=== PATIENT | male | born 1960 | race Two or more races ===

== ENCOUNTER 2023-02-05 06:15 | Emergency (ER) | payer MEDICAID, SELFPAY ==
--- NOTE | 2023-02-05 | ECG_ITS ---
Test Reason : syncopy Blood Pressure : / mmHG Vent. Rate : 102 BPM Atrial Rate : 102 BPM P-R Int : 138 ms QRS Dur : 090 ms QT Int : 388 ms P-R-T Axes : 068 054 056 degrees QTc Int : 505 ms Sinus tachycardia with Premature atrial complexes Nonspecific ST abnormality Abnormal ECG No previous ECGs available Referred By: Generic ED Physician Electronically Signed By:Luis Bentley
--- NOTE | ~2023-02-05 | XR_ITS ---
EXAMINATION: XR CHEST CLINICAL INFORMATION: Cough COMPARISON: None available. TECHNIQUE: 2 views of the chest were obtained. FINDINGS: Slight bronchial thickening which can be seen in setting of infectious/inflammatory etiology. Elevation the right hemidiaphragm, nonspecific. No pneumothorax. Trachea is midline. Cardiac mediastinal silhouette is not enlarged. Atherosclerotic calcifications of the aortic arch. No large pleural effusion. Degenerative changes of the thoracolumbar spine. Soft tissues are unremarkable. XR/XR chest 2V IMPRESSION: 1. Slight bronchial thickening which can be seen in setting of infectious/inflammatory etiology. 2. Elevation of the right hemidiaphragm, nonspecific.
[2023-02-05 06:20] VITALS: BP 142/90; PULSE 105; O2SAT 96
[2023-02-05 06:22] VITALS: BP 164/87; PULSE 99; RESP 20; TEMP 36.8; O2SAT 96; BMI 24.8
[2023-02-05 06:32] VITALS: BP 145/89; O2SAT 100
[2023-02-05 06:48] LABS: MANUAL DIFF FLAG NO
[2023-02-05 06:49] LABS: Basophils Percent Auto 0.2 % (0-2); Eosinophils Percent Auto 0.2 % (0-4); Hematocrit 45.6 % (42.0-52.0); Hemoglobin 15.3 g/dl (14.0-18.0); Imm Gran Abs Auto 0.06 X10*3/uL (0.00-0.03); Imm Gran Pct Auto 0.5 % (0.0-0.4); Lymphocytes Absolute Auto 1.5 X10*3/uL (1.2-4.9); Lymphocytes Percent Auto 11.6 % (20-40); Mean Corpuscular HGB Conc 33.6 g/dl (31.0-36.0); Mean Corpuscular Volume 92.3 fL (80.0-98.0); Mean Platelet Volume 10.3 fL (9.4-12.4); Monocytes Absolute Auto 1.1 X10*3/uL (0.1-1.2); Monocytes Percent Auto 8.7 % (2-11); Neutrophils Absolute Auto 10.1 x10*3/uL (2.0-8.3); Neutrophils Percent Auto 78.8 % (45-73); Platelet Count 176 X10*3/uL (160-400); Red Blood Count 4.94 X10*6/uL (4.60-5.80); White Blood Count 12.8 X10*3/uL (4.8-10.8)
[2023-02-05 07:09] VITALS: BP 150/76; PULSE 88; RESP 20; TEMP 37.1; O2SAT 94
[2023-02-05 07:09] LABS: Anion Gap 19 (12-20); Blood Urea Nitrogen 14 mg/dL (9-16); Calcium 9.1 mg/dL (8.4-10.2); Carbon Dioxide 20 mmol/L (22-29); Chloride 102 mmol/L (96-108); Creatinine Clr Calc Pharmacy 70.6; Estimated Glomerular Filt Rate > 60; Glucose Random 138 mg/dL (60-115); Potassium 2.9 mmol/L (3.3-5.1); Sodium 138 mmol/L (135-145)
[2023-02-05 07:27] LABS: Influenza A PCR POSITIVE (Negative); Influenza B PCR NEGATIVE (Negative); Resp Syncy Virus RNA Qual PCR NEGATIVE (Negative); SARS COV2 PCR INHOUSE NEGATIVE (Negative)
--- NOTE | 2023-02-05 07:39 | ED.GENADULT ---
[facility] - General Adult General Chief complaint: Syncope Stated complaint: syncope Time Seen by Provider: 02/05/23 07:04 Source: patient Mode of arrival: EMS History of Present Illness HPI narrative: 62-year-old male who has no significant past medical history other than occasional alcohol use, last use was 2 days ago but patient has been having 3 days generalized weakness, fatigue, not feeling well . Patient states that this morning he was feeling very weakened, he denies falling or even nearly falling. Related Data Previous Rx's Medication Instructions Recorded amoxicillin 875 mg-potassium 1 tab PO BID 5 days #10 tabs 02/05/23 clavulanate 125 mg tablet Allergies Allergy/AdvReac Type Severity Reaction Status Date / Time morphine Allergy Rash Verified 02/05/23 06:21 Review of Systems Review of Systems: Pertinent positives and negatives as stated in [facility] Past Medical History Source: nursing notes reviewed Social History Social History Advance Directives: No Advance Directives Information Provided: No Physical Exam ED Vital Signs: Vital Signs - 24 hr 02/05/23 06:22 02/05/23 06:32 02/05/23 06:32 Temperature 98.3 F Pulse Rate 99 Respiratory Rate 20 Blood Pressure 164/87 H 145/89 H Pulse Oximetry 96 100 Oxygen Delivery Method Room Air Room Air 02/05/23 07:09 02/05/23 09:36 Temperature 98.7 F 98.4 F Pulse Rate 88 101 H Respiratory Rate 20 24 H Blood Pressure 150/76 H Pulse Oximetry 94 96 Oxygen Delivery Method Room Air Room Air BMI result Body Mass Index 24.8 VITAL SIGNS: Reviewed. GENERAL: Well developed, well nourished, in no acute distress. HEAD: Normocephalic/atraumatic EYES: PERRLA, EOMI EARS: Ext canals without abnormality, TMs non-bulging and non-erythematous NOSE: Nares patent bilateral OROPHARYNX: no oral lesions noted, posterior pharynx clear and non-erythematous without noted tonsillar enlargement/erythema/exudates NECK: Supple, no adenopathy LUNGS: Normal breath sounds. No adventitious sounds or accessory muscle use. SpO2<94> CARDIOVASCULAR: Regular rate and rhythm without noted murmurs ABDOMEN: Soft, non-tender, non-distended with bowel sounds. MUSCULOSKELETAL: No tenderness, deformities, or effusions noted on gross inspection. EXTREMITIES: No cyanosis, clubbing or edema. SKIN: Inspection of the skin reveals no rashes NEUROLOGIC: Alert and oriented x 4. Strength and sensation to light touch were grossly intact x 4. Medications Administered Discontinued Medications Generic Name Dose Route Start Last Admin Trade Name Dimitris PRN Reason Stop Dose Admin Acetaminophen 975 mg 02/05/23 08:03 02/05/23 08:21 Acetaminophen 325 Mg Tablet PO 02/05/23 08:04 975 mg ONCE ONE Administration Ibuprofen 400 mg 02/05/23 08:03 02/05/23 08:21 Ibuprofen 400 Mg Tablet PO 02/05/23 08:04 400 mg ONCE ONE Administration Potassium Chloride 60 meq 02/05/23 08:03 02/05/23 08:21 Potassium Chloride Er 20 Meq Tab.Er.Prt PO 02/05/23 08:04 60 meq ONCE ONE Administration Medical Decision Making Medical Decision Making [facility] Narrative: 0740: 62-year-old male with history and clinical presentation, DDX: Pneumonia, viral illness: COVID/influenza/RSV, anemia or electrolyte derangements. Patient denies any fall despite what is reported in the triage note. Patient states he just was not feeling well and sat down. I reviewed all investigations, hematologic indices demonstrate a leukocytosis and left shift but no anemia or thrombocytopenia. Patient is afebrile and is noted to be flu positive with chest x-ray demonstrated bronchial wall thickening. Patient will receive antibiotics, but is out of the window for Tamiflu. Chemistry indices demonstrate a mild hypokalemia which will be repleted with 60 mEq of potassium chloride and also provided with information regarding dietary changes (patient does use alcohol on a semi-regular basis which is likely contributing to these results, but magnesium was within normal limits). No acute findings on EKG other than tachycardia. My interpretation is that patient has a viral syndrome, not feeling well secondary to influenza infection and suspect underlying CAP. Received combination analgesics, potassium chloride as well as initial antibiotics here in the emergency room. Differential Diagnosis Differential Diagnoses: The differential diagnosis associated with the presentation includes Please see the discussion above Admission/Observation Consideration of admission/observation: Escalation of care including admission/observation considered Please see the discussion above Lab Data [facility] Lab Attestation statement: I reviewed the patient's lab results. Please see the discussion above 02/05/23 06:41 02/05/23 06:41 Labs: Lab Results 02/05/23 02/05/23 Range/Units 06:41 06:45 WBC 12.8 H (4.8-10.8) X10*3/uL RBC 4.94 (4.60-5.80) X10*6/uL Hgb 15.3 (14.0-18.0) g/dl Hct 45.6 (42.0-52.0) % MCV 92.3 (80.0-98.0) fL MCH 31.0 (27.0-33.0) pg MCHC 33.6 (31.0-36.0) g/dl RDW 13.0 (11.0-16.0) % Plt Count 176 (160-400) X10*3/uL MPV 10.3 (9.4-12.4) fL Immature Gran % (Auto) 0.5 H (0.0-0.4) % Neut % (Auto) 78.8 H (45-73) % Lymph % (Auto) 11.6 L (20-40) % Sierra % (Auto) 8.7 (2-11) % Eos % (Auto) 0.2 (0-4) % Baso % (Auto) 0.2 (0-2) % Lymph # (Auto) 1.5 (1.2-4.9) X10*3/uL Sierra # (Auto) 1.1 (0.1-1.2) X10*3/uL Eos # (Auto) 0.0 (0.0-0.4) X10*3/uL Baso # (Auto) 0.0 (0.0-0.2) X10*3/uL Abs Immat Gran (auto) 0.06 H (0.00-0.03) X10*3/uL Absolute Neuts (auto) 10.1 H (2.0-8.3) x10*3/uL Absolute Nucleated RBC 0.000 (0.0-0.012) X10*3/uL Nucleated RBC % (auto) 0.0 (0.0-0.2) /100WBC Sodium 138 (135-145) mmol/L Potassium 2.9 L (3.3-5.1) mmol/L Chloride 102 (96-108) mmol/L Carbon Dioxide 20 L (22-29) mmol/L Anion Gap 19 (12-20) BUN 14 (9-16) mg/dL Creatinine 1.12 (0.5-1.4) mg/dL Estim Creat Clear Calc 70.6 Estimated GFR > 60 Random Glucose 138 H (60-115) mg/dL Calcium 9.1 (8.4-10.2) mg/dL Magnesium 1.9 (1.6-2.6) mg/dL Influenza Type A (PCR) POSITIVE A (Negative) Influenza Type B (PCR) NEGATIVE (Negative) RSV RNA Qual (PCR) NEGATIVE (Negative) SARS-CoV-2 RNA (RT-PCR) NEGATIVE (Negative) Independent Interpretation I performed an independent interpretation of an: EKG Interpretation: Sinus tachycardia, HR-102, no STEMI, MO/QRS are within normal limits but QTC is noted to be mildly prolonged. Radiology Impression Discussion of test interpretation with radiology: I have reviewed the radiologist's reading. Radiologist Impression: Please see the discussion above External Record Review External record reviewed: Outpatient record, Prior outpatient labs and Prior outpatient radiology Critical Care Time Critical Care Time Critical Care Time: Yes Total Critical Care Time: 30 Attestation: I personally attest to this time spent taking care of the patient. Discharge Plan Discharge Clinical Impression: Viral syndrome, Influenza A, Pneumonia Patient Disposition: Home, Self-Care Instructions: Influenza (ED), Viral Syndrome (ED), Pneumonia (ED), Potassium Content of Foods List (ED) Additional Instructions: 1. Recommend [id number] Tylenol/ibuprofen as needed for body aches, headaches, temperatures greater than 100.4. 2. Please continue to drink plenty of fluids, water not alcohol, resume any home medications as prescribed. 3. Follow-up with your primary care doctor in the next 1-2 days. Return to the ER for any worsening symptoms. Prescriptions: New amoxicillin-pot clavulanate 875-125 mg tablet 1 tab PO BID 5 Days Qty: 10 0RF
[2023-02-05 07:59] LABS: Magnesium 1.9 mg/dL (1.6-2.6)
[2023-02-05] MEDS: Ibuprofen 400 MG TABLET PO (08:21)
[2023-02-05] MEDS: Acetaminophen 325 MG TABLET 975 MG PO (08:21)
[2023-02-05] MEDS: Potassium Chloride ER 20 MEQ TAB.ER.PRT 60 MEQ PO (08:21)
[2023-02-05 09:36] VITALS: PULSE 101; RESP 24; TEMP 36.9; O2SAT 96
[2023-02-05 10:08] VITALS: BP 150/80; PULSE 100; RESP 19; O2SAT 96
== END 2023-02-05 10:14 | disposition home or self-care (01) ==
PROVIDERS: Emergency Provider Student in an Organized Health Care Education/Training Program
DX: J10.00 Influenza due to other identified influenza virus with unspecified type of pneumonia (principal); B34.9 Viral infection, unspecified; Z20.822 Contact with and (suspected) exposure to COVID-19; Z20.828 Contact with and (suspected) exposure to other viral communicable diseases
CPT/HCPCS: 0241U; 36415; 71046; 80048; 83735; 85025; 93005; 99283; 99285

== ENCOUNTER → 2023-02-05 06:35 | Outpatient (BNV) | payer MEDICAID, SELFPAY | PROVIDERS: Emergency Provider Student in an Organized Health Care Education/Training Program; Visit Provider Internal Medicine Cardiovascular Disease | DX: I49.1 Atrial premature depolarization (principal); R94.31 Abnormal electrocardiogram [ECG] [EKG] | CPT/HCPCS: 93010 ==

== ENCOUNTER 2023-04-23 13:04 | Outpatient (AMB) | payer MEDICAID, SELFPAY ==
--- NOTE | 2023-04-23 13:07 | A.OFFVIS_ITS ---
Intake Vital Signs 04/23/23 13:15 Height 5 ft 10 in Weight 175 lb BMI 25.1 BP 140/82 H Blood Pressure Location Lt brachial Position Sitting Respiration 16 Pulse 80 Pulse Source Pulse Oximeter Pulse Oximetry (%) 97 Oxygen Delivery Method Room Air Intake Visit Reasons: Low Back Pain/confirm Intake Note: Patient comes in for initial visit was referred by primary care. Reports pain 09/02. Allergies morphine Allergy (Verified 04/23/23 13:13) Rash HPI HPI Comments History of Present Illness Details Price is very pleasant 62 years old gentleman who presents in my office with complains on pain in the axial lower lumbar spine with associated numbness in the right lower extremity. He reports that the problem started years ago. He reports that walking aggravates his pain the most. Flexing forward and flexing backwards hurts him however flexing backwards aggravates his pain more than flexing forward. He can not sleep normally because of his pain but he can not do activities of daily living he can not take care of himself he can not function normally. He is on permanent disability. His last full day of work was 15 years ago. He is on disability because of the neck surgery. However he denies knee pain in the cervical spine. He reports that his pain is worse at night and less severe in the afternoon. In terms of tissue damage he reports that his pain is throbbing in nature. He is taking oxycodone clonazepam and trazodone for his condition. He denies any recent images of his lumbar spine. He had the MRI long time ago and he received epidural steroid injections many years ago. He does not remember if epidural steroid injection was helping his pain. He went for physical therapy and with physical therapy he experienced pain so severe that he is refuses to continue to go for physical therapy. He denies chiropractic manipulation. His past medical history is negative. His past surgical history is posterior fusion of the cervical spine, and meniscus tear surgery 20 years ago. He denies smoking cigarettes he denies drinking alcohol he drinks coffee 1 cup a day and he smokes cannabis. He denies other recreational drugs. [facility] Medical History (Updated 04/23/23 @ 13:49 by Jose Manuel Bena MD) Chronic pain syndrome Review of Systems Const Denies chills and Denies fever(s) Eyes Denies blurry vision, Denies exophthalmos and Denies diplopia ENT Reports Normal hearing present, Denies vertigo and Denies dizziness Card Denies chest pain, Denies chest pain at rest, Denies chest pain with activity, Reports diaphoresis, Denies syncope, Denies rapid heart rate, Denies pedal edema and Denies edema Resp Denies chest congestion, Denies cough, Denies hemoptysis, Denies excessive phlegm production, Denies pain on inspiration and Denies pain with cough GI Denies abdominal pain, Denies belching, Denies melena and Denies bloating Denies urinary incontinence Musc Denies as per HPI, Denies back pain and Denies tingling Neuro Reports Normal hearing present, Denies Abnormal speech present, Denies confusion, Denies vertigo, Denies dizziness, Denies syncope, Denies lack of coordination, Denies Sensory deficit (Neuro) and Denies tingling Psych Reports abnormal sleep pattern and Denies confusion Physical Exam Vital Signs: Last Vital Signs Pulse 80 04/23/23 13:15 Resp 16 04/23/23 13:15 BP 140/82 H 04/23/23 13:15 Pulse Ox 97 04/23/23 13:15 Oxygen Delivery Method Room Air 04/23/23 13:15 BMI result Body Mass Index 25.1 Const General: no acute distress; No confusion Orientation/consciousness: patient oriented x3 and No confusion Eyes General: appearance normal, both eyes and all related structures Pupils: Equal, round and reactive pupils present EOM: EOMs intact bilaterally Neck Neck: Yes full ROM Chest Chest palpation & inspection: normal inspection of the chest Resp Effort & Inspection: normal respiratory effort, able to speak in complete sentences, normal respiratory pattern, no audible wheezes and no cough Cardio Jugular venous distension: no JVD GI Inspection: Yes normal to inspection Back/Spine/Pelvis Other: Able to stand with difficulty on bilateral tiptoes. The right lower extremities objectively weaker when he is attempting to stand on the tiptoes. Able to stand on bilateral heels with dorsiflexion of the feet. SLR is positive on the right. There is subjective numbness in the right lower extremity. The numbness is below the level of the lower calf. Flexing forward and flexing backwards both aggravate his pain. Flexing backwards aggravates his pain more than flexing forward. Tenderness on palpation in paraspinal spinal region lumbar spine mostly in projection of L4-5 vertebra. Neuro General: patient oriented x3, gait normal and No confusion Cranial nerves: Yes Equal, round and reactive pupils present and Yes Normal hearing present Speech: No Abnormal speech present Gait exam (Neuro): Normal gait present Motor exam (neuro): 5/5 motor strength present throughout Sensory Exam: No Sensory deficit (Neuro) Extrem General: No pedal edema Psych Speech and movement: Normal speech and movement present Affect: normal affect Attitude: cooperative Thought process: Normal thought process present Thought content: Normal thought content present Insight: Good insight present (Psych) Judgement: Good judgement present (Psych) Assessment & Plan Assessment & Plan (1) Radiculopathy, lumbar region: Code(s): M54.16 - Radiculopathy, lumbar region (2) Intractable low back pain: Code(s): M54.59 - Other low back pain (3) Chronic pain syndrome: Code(s): G89.4 - Chronic pain syndrome Plan Most likely this patient is suffering from right-sided radiculopathy. He had epidural steroid injections in the past long time ago with unknown results. Most likely he had some changes on MRI at that time. I would like to see the MRI of the lumbar spine before I will make any conclusions about the treatment of the patient. I will schedule him for MRI as soon as possible. He will schedule appointment as soon as possible after he will exited the MRI machine. Orders: Orders MR lumbar spine wo con Today M54.16 - Radiculopathy, lumbar region, M54.59 - Other low back pain Coding Level of Care Code New Pt Level 3 (47769) Diagnoses Radiculopathy, lumbar region M54.16 Intractable low back pain M54.59 Chronic pain syndrome G89.4
[2023-04-23 13:15] VITALS: BP 140/82; PULSE 80; RESP 16; O2SAT 97; BMI 25.1
== END 2023-04-23 15:15 | disposition home or self-care (01) ==
PROVIDERS: PCP Internal Medicine; Visit Provider Anesthesiology
DX: M54.16 Radiculopathy, lumbar region (principal); M54.59 Other low back pain; G89.4 Chronic pain syndrome
CPT/HCPCS: 99203

== ENCOUNTER → 2023-04-23 13:04 | Outpatient (BNVA) | payer MEDICAID, SELFPAY | PROVIDERS: PCP Internal Medicine; Visit Provider Anesthesiology | DX: M54.16 Radiculopathy, lumbar region (principal); M54.59 Other low back pain; G89.4 Chronic pain syndrome | CPT/HCPCS: 99202 ==

== ENCOUNTER 2023-07-01 14:14 | Outpatient (REF) | payer MEDICAID, SELFPAY ==
--- NOTE | ~2023-07-01 | MR_ITS ---
EXAMINATION: MR LUMBAR SPINE WITHOUT CONTRAST CLINICAL INFORMATION: Low back pain COMPARISON: None available. TECHNIQUE: MRI of the lumbar spine was obtained using routine sequences without contrast. FINDINGS: Please note that evaluation is limited as axial T2 sequence was was obtained from L3 through S1. There are 5 nonrib-bearing lumbar-type vertebrae. Slight straightening of the normal lumbar lordosis. Mild retrolisthesis at L4-L5. No acute bone marrow abnormality. The vertebral body heights are preserved. Disc desiccation at L4-L5 and L5-S1 without significant disc height loss. Multilevel endplate osteophytosis. The visualized spinal cord is normal in caliber. No abnormal cord signal. The conus medullaris terminates at L1-L2. T12-L1: No significant spinal canal or neural foraminal narrowing. L1-L2: No significant spinal canal or neural foraminal narrowing. L3-L4: No significant spinal canal stenosis. Minimal left greater than right neural foraminal narrowing with the disc abutting the exiting L3 nerve roots bilaterally. L4-L5: Central disc extrusion migrating caudally along L5. There is superimposed annular fissure. Bilateral facet arthrosis. Moderate spinal canal stenosis. Mild to moderate bilateral neural foraminal narrowing with the disc abutting the exiting L4 nerve roots. L5-S1: Diffuse disc bulge and bilateral facet arthrosis. Prominent epidural fat. There is resultant near complete effacement of the thecal sac. Mild to moderate left greater than right neural foraminal narrowing with the disc abutting the exiting L5 nerve roots bilaterally. The paravertebral soft tissues are unremarkable. MR/MR lumbar spine wo con IMPRESSION: Within the limitations of this study, -At L4-L5, there is a central disc extrusion with superimposed annular fissure causing moderate spinal canal stenosis and mild to moderate bilateral neural foraminal narrowing. -At L5-S1: Disc bulge and epidural lipomatosis resulting in near complete effacement of the thecal sac. There is mild to moderate moderate bilateral neural foraminal narrowing with the disc abutting the exiting L5 nerve roots.
== END 2023-07-01 14:15 | disposition home or self-care (01) ==
LOC: HO.MRI 14:14
PROVIDERS: PCP Internal Medicine; Visit Provider Anesthesiology
DX: M54.59 Other low back pain (principal); M54.16 Radiculopathy, lumbar region
CPT/HCPCS: 72148

== ENCOUNTER 2023-11-19 14:00 | Outpatient (AMB) | payer MEDICAID, SELFPAY ==
--- NOTE | 2023-11-19 14:07 | A.OFFVIS_ITS ---
Vital Signs 11/19/23 14:11 Height 5 ft 10 in Weight 174 lb 2 oz BMI 25.0 BP 140/84 H Blood Pressure Location Lt brachial Position Sitting Respiration 14 Pulse 108 H Pulse Source Pulse Oximeter Pulse Oximetry (%) 97 Oxygen Delivery Method Room Air Intake Visit Reasons: FOLLOW UP AFTER MRI Intake Note: Patient comes in to discuss MRI results. Reports pain 810. Allergies morphine Allergy (Verified 11/19/23 14:11) Rash HPI Comments Details: Price is back in my office after the MRI. 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 It also demonstrated significant arthritis in lower lumbar spine. We agreed today that I will send him for the consultation with our neurosurgeon Dr. Funk, we also agreed today that I will try to help his pain in the lower back mostly axial pain by performing medial branch block diagnostic L3-L4 does ramus L5 bilateral. I will see this patient an appointment after the diagnostic medial branch block to assess the the patient's condition. The numbness in bilateral lower extremities we will certainly not be helped by medial branch block so the hope is that maybe neurosurgery can offer him some minimally invasive procedure to to help this condition. Prior: with complains on pain in the axial lower lumbar spine with associated numbness in the right lower extremity. He reports that the problem started years ago. He reports that walking aggravates his pain the most. Flexing forward and flexing backwards hurts him however flexing backwards aggravates his pain more than flexing forward. He can not sleep normally because of his pain but he can not do activities of daily living he can not take care of himself he can not function normally. He is on permanent disability. His last full day of work was 15 years ago. He is on disability because of the neck surgery. However he denies knee pain in the cervical spine. He reports that his pain is worse at night and less severe in the afternoon. In terms of tissue damage he reports that his pain is throbbing in nature. He is taking oxycodone clonazepam and trazodone for his condition. He denies any recent images of his lumbar spine. He had the MRI long time ago and he received epidural steroid injections many years ago. He does not remember if epidural steroid injection was helping his pain. He went for physical therapy and with physical therapy he experienced pain so severe that he is refuses to continue to go for physical therapy. He denies chiropractic manipulation. His past medical history is negative. His past surgical history is posterior fusion of the cervical spine, and meniscus tear surgery 20 years ago. He denies smoking cigarettes he denies drinking alcohol he drinks coffee 1 cup a day and he smokes cannabis. He denies other recreational drugs. [facility] Medical History (Updated 11/20/23 @ 08:36 by Jose Manuel Bean MD) Chronic pain syndrome Review of Systems Const All systems reviewed & are unremarkable except as noted in HPI and below ENT Reports Normal hearing present Neuro Reports Normal hearing present, Denies Abnormal speech present, Denies confusion and Denies Sensory deficit (Neuro) Psych Denies confusion Physical Exam Vital Signs: Last Vital Signs Pulse 108 H 11/19/23 14:11 Resp 14 11/19/23 14:11 BP 140/84 H 11/19/23 14:11 Pulse Ox 97 11/19/23 14:11 Oxygen Delivery Method Room Air 11/19/23 14:11 BMI result Body Mass Index 25.0 Const General: no acute distress; No confusion Orientation/consciousness: patient oriented x3 and No confusion Eyes General: appearance normal, both eyes and all related structures Pupils: Equal, round and reactive pupils present EOM: EOMs intact bilaterally Neck Neck: Yes full ROM Chest Chest palpation & inspection: normal inspection of the chest Resp Effort & Inspection: normal respiratory effort, able to speak in complete sentences, normal respiratory pattern, no audible wheezes and no cough Cardio Jugular venous distension: no JVD GI Inspection: Yes normal to inspection Back/Spine/Pelvis Other: Able to stand with difficulty on bilateral tiptoes. The right lower extremities objectively weaker when he is attempting to stand on the tiptoes. Able to stand on bilateral heels with dorsiflexion of the feet. SLR is positive on the right. There is subjective numbness in the right lower extremity. The numbness is below the level of the lower calf. Flexing forward and flexing backwards both aggravate his pain. Flexing backwards aggravates his pain more than flexing forward. Tenderness on palpation in paraspinal spinal region lumbar spine mostly in projection of L4-5 vertebra. Neuro General: patient oriented x3, gait normal and No confusion Cranial nerves: Yes Equal, round and reactive pupils present and Yes Normal hearing present Speech: No Abnormal speech present Gait exam (Neuro): Normal gait present Motor exam (neuro): 5/5 motor strength present throughout Sensory Exam: No Sensory deficit (Neuro) Extrem General: No pedal edema Psych Speech and movement: Normal speech and movement present Affect: normal affect Attitude: cooperative Thought process: Normal thought process present Thought content: Normal thought content present Insight: Good insight present (Psych) Judgement: Good judgement present (Psych) Results Reviewed Results Reviewed: MR LUMBAR SPINE WITHOUT CONTRAST CLINICAL INFORMATION: Low back pain COMPARISON: None available. TECHNIQUE: MRI of the lumbar spine was obtained using routine sequences without contrast. FINDINGS: Please note that evaluation is limited as axial T2 sequence was was obtained from L3 through S1. There are 5 nonrib-bearing lumbar-type vertebrae. Slight straightening of the normal lumbar lordosis. Mild retrolisthesis at L4-L5. No acute bone marrow abnormality. The vertebral body heights are preserved. Disc desiccation at L4-L5 and L5-S1 without significant disc height loss. Multilevel endplate osteophytosis. The visualized spinal cord is normal in caliber. No abnormal cord signal. The conus medullaris terminates at L1-L2. T12-L1: No significant spinal canal or neural foraminal narrowing. L1-L2: No significant spinal canal or neural foraminal narrowing. L3-L4: No significant spinal canal stenosis. Minimal left greater than right neural foraminal narrowing with the disc abutting the exiting L3 nerve roots bilaterally. L4-L5: Central disc extrusion migrating caudally along L5. There is superimposed annular fissure. Bilateral facet arthrosis. Moderate spinal canal stenosis. Mild to moderate bilateral neural foraminal narrowing with the disc abutting the exiting L4 nerve roots. L5-S1: Diffuse disc bulge and bilateral facet arthrosis. Prominent epidural fat. There is resultant near complete effacement of the thecal sac. Mild to moderate left greater than right neural foraminal narrowing with the disc abutting the exiting L5 nerve roots bilaterally. The paravertebral soft tissues are unremarkable. MR/MR lumbar spine wo con IMPRESSION: Within the limitations of this study, -At L4-L5, there is a central disc extrusion with superimposed annular fissure causing moderate spinal canal stenosis and mild to moderate bilateral neural foraminal narrowing. -At L5-S1: Disc bulge and epidural lipomatosis resulting in near complete effacement of the thecal sac. There is mild to moderate moderate bilateral neural foraminal narrowing with the disc abutting the exiting L5 nerve roots. Assessment & Plan Assessment & Plan (1) Radiculopathy, lumbar region: Code(s): M54.16 - Radiculopathy, lumbar region Category: Medical (2) Intractable low back pain: Code(s): M54.59 - Other low back pain Category: Medical (3) Chronic pain syndrome: Code(s): G89.4 - Chronic pain syndrome Category: Medical (4) Spondylosis of lumbar region without myelopathy or radiculopathy: Code(s): M47.816 - Spondylosis without myelopathy or radiculopathy, lumbar region Category: Medical Plan Most likely this patient is suffering from right-sided radiculopathy. He had epidural steroid injections in the past long time ago with unknown results. Unlikely the results were encouraging otherwise he would be continuing those injections. He complains mostly on numbness in bilateral lower extremities. The axial back pain with radiation into the right lower extremity is another complaint. I will try to differentiate between the axial back pain secondary to arthritis of the facets versus the nerve root compression by the disc bulging and lipomatosis. I will send him for consult with Dr. Funk. Orders: Referrals Neurosurgery Referral G89.4 - Chronic pain syndrome, M47.816 - Spondylosis without myelopathy or radiculopathy, lumbar region, M54.16 - Radiculopathy, lumbar region, M54.59 - Other low back pain Patient Instructions: I here by testify that I spent 32 minutes in conversation with this patient as well as planning his care and organizing this note. Coding Level of Care Code Est Pt Level 4 (24245) Diagnoses Radiculopathy, lumbar region M54.16 Intractable low back pain M54.59 Chronic pain syndrome G89.4 Spondylosis of lumbar region without myelopathy or radiculopathy M47.816
[2023-11-19 14:11] VITALS: BP 140/84; PULSE 108; RESP 14; O2SAT 97; BMI 25.0
== END 2023-11-19 14:36 | disposition home or self-care (01) ==
PROVIDERS: PCP Internal Medicine; Visit Provider Anesthesiology
DX: M54.16 Radiculopathy, lumbar region (principal); M54.59 Other low back pain; G89.4 Chronic pain syndrome; M47.816 Spondylosis without myelopathy or radiculopathy, lumbar region
CPT/HCPCS: 99214

== ENCOUNTER → 2023-11-19 14:00 | Outpatient (BNVA) | payer MEDICAID, SELFPAY | PROVIDERS: PCP Internal Medicine; Visit Provider Anesthesiology | DX: M47.816 Spondylosis without myelopathy or radiculopathy, lumbar region (principal); M54.16 Radiculopathy, lumbar region; M54.50 Low back pain, unspecified; G89.4 Chronic pain syndrome; Z79.891 Long term (current) use of opiate analgesic; Z79.899 Other long term (current) drug therapy | CPT/HCPCS: 99212 ==

== ENCOUNTER 2023-11-28 10:30 | Outpatient (AMB) | payer MEDICAID, SELFPAY ==
--- NOTE | 2023-11-28 10:34 | HO.SPINEOV ---
Intake Visit Reasons: LBP Intake Note: Mr. Sullivan is here today c/o Low back pain. [employer] In[employer] Required: No Allergies morphine Allergy (Verified 11/28/23 10:38) Rash Assessment & Plan Assessment & Plan (1) Cervical myelopathy: Code(s): G95.9 - Disease of spinal cord, unspecified Category: Medical (2) Intractable low back pain: Code(s): M54.59 - Other low back pain Category: Medical Plan Dear Dr Bean, Thank you for referring Mr Sullivan to our office today. He is a very nice 63-year-old gentleman presents to the office today for evaluation of chronic low back pain. The pain is generally they are in his back all the time, it has been this way for many many years. He had to stop working years ago because of the back pain. He will get intermittent flare-ups 2 to 3 times a month will which will put him in bed for days on end. He smokes marijuana which helps his pain, takes oxycodone Klonopin but does not feel these really do much. He has been through physical therapy which only made things worse. He has not had any injections, chiropractic, acupuncture yet. For the most part he just lives with the symptoms. He does not report any pain radiating down his legs. There is numbness in his anterior tibial region that is present all the time. It initially started on the left but now has progressed to the right. He does have balance issues and some urinary urgency. He comes to us today with an MRI showing central disc herniation at L4-5. PMH: He tells me he is otherwise healthy outside of being a smoker. He had a cervical laminectomy done about 20 years ago or so. He tells me that was done for neck pain. There was hardware put in but he can not remember exactly what levels of the spine were operated on. He does not recall having any issues with spinal cord compression at that time in terms of tingling numbness, gait imbalance etc.. He recovered without incident from that. He has not recently been having any significant neck pain or new numbness in the arms. He has had recent development of numbness in his legs however. History of appendectomy. Denies any heart disease, strokes, liver disease, renal disease, GI problems, cancer, bleeding disorders, blood clots, strokes. Social hx: He smokes about 5 cigarettes a day, occasional alcohol smokes marijuana daily Medications: Oxycodone, Klonopin, trazodone Allergies: Morphine gives him a rash Physical exam: He is awake alert oriented no acute distress, he is slow getting up out of a chair but is able to get up on the examining table. As motor examination reveals some mild weakness of his hands. He has pain with flexion of his iliopsoas. He is diffusely hyperreflexic, worse on the left. Positive Kathryn's sign and clonus. Imaging review: There is a lumbar MRI done at [place] showing normal alignment of the spine. There is a very tiny central disc herniation at L4-5. There may be some crowding of the left lateral recess here. Radiologist reports significant epidural lipomatosis at L5-S1 with crowding and effacement of the cauda equina nerve roots. Impression: 63-year-old male presents for evaluation of chronic all day unrelenting back pain which is associated with 1 to 2 times a month flare-ups which leave him in bed for days on end. While he does have some mild degeneration at L4-5 with a very small central disc herniation, there is no spondylolisthesis no Modic endplate changes or anything to suggest that this is definitively the source of his back pain. It seems rather unusual that he has it at rest and with activity so it does not seem to be related to walking and standing. He does not have any pain radiating down his legs. His MRI report suggests that he has severe central canal stenosis secondary to epidural lipomatosis. This condition can be related to back pain, but surgical results are often equivocal and unpredictable, and simple efforts at weight loss usually can reduce it. He currently has no claudicating symptoms in his legs either so I am not sure if this lipomatosis is related to his current set of issues. Also, I would not suspect that epidural lipomatosis would cause this gentleman to be stuck in bed for 2-3 days on end which is 1 of his main complaints. I do not think there is an easy surgical option for him. There is just not enough findings there on the MRI to correlate with all of his symptoms. It sounds like you are going to have him set up for injections and that might be a better way to go. I am a little suspicious about his cervical spine having had spinal fusion 20 years ago and reports balance issues some urinary urgency and numbness of his legs. Since he is still hyperreflexic on exam but does not recall any time being told he had spinal cord compression, I would like to rule this out with a cervical MRI and x-rays. Thank you for allowing us to care for your patient. The total time spent with this visit with this patient was 45 minutes reviewing history, physical exam, lumbar imaging review, and implementation of treatment plan or further diagnostic testing Alek Funk MD,PhD [facility] Orders: Orders XR cervical spine 4V Today G95.9 - Disease of spinal cord, unspecified MR cervical spine wo con Today G95.9 - Disease of spinal cord, unspecified Coding Level of Care Code New Pt Level 4 (15788) Diagnoses Cervical myelopathy G95.9 Intractable low back pain M54.59
== END 2023-11-28 11:16 | disposition home or self-care (01) ==
PROVIDERS: PCP Internal Medicine; Referring Provider Anesthesiology; Visit Provider Physician Assistant
DX: G95.9 Disease of spinal cord, unspecified (principal); M54.59 Other low back pain
CPT/HCPCS: 99204

== ENCOUNTER → 2023-11-28 10:30 | Outpatient (BNVA) | payer MEDICAID, SELFPAY | PROVIDERS: PCP Internal Medicine; Visit Provider Physician Assistant | DX: G95.9 Disease of spinal cord, unspecified (principal); M54.59 Other low back pain | CPT/HCPCS: 99202 ==

== ENCOUNTER 2023-12-30 09:41 | Outpatient (REF) | payer MEDICAID, SELFPAY ==
--- NOTE | ~2023-12-30 | MR_ITS ---
EXAMINATION: MR CERVICAL SPINE WITHOUT CONTRAST CLINICAL INFORMATION: Disease of the spinal cord, unspecified. COMPARISON: None available. TECHNIQUE: MRI of the cervical spine was obtained using routine sequences without contrast. FINDINGS: Craniocervical junction is intact. No bone marrow STIR signal abnormality. Incomplete ankylosis with associated intrinsic hyperintense T1 signal at C4-5. Grade 1 retrolisthesis, C3-4. Status post left hemilaminectomy, C4-5. Bilateral hemicord hyperintense T2 STIR signal at C4-5 with associated volume loss/flattening spinal cord. C2-3: Broad-based disc osteophyte complex formation. No disc herniation. No neuroforamina stenosis. No cord compression. No cord signal abnormality. C3-4: Broad-based disc osteophyte complex formation resulting in ventral deformity of the thecal sac. Focal hyperintense T2 STIR signal right hemicord. Bilateral neuroforamina narrowing on a degenerative basis. C4-5: Left hemilaminectomy. No cord compression. Bilateral hemicord hyperintense T2 STIR signal abnormality with volume loss. Left neuroforamina narrowing on a degenerative basis. C5-6: Broad-based disc osteophyte complex formation. No cord compression. No cord signal abnormality. Bilateral neuroforamina narrowing on a degenerative basis. C6-7: Broad-based disc osteophyte complex formation resulting in ventral deformity of the thecal sac. No cord compression. No cord signal abnormality. Bilateral neuroforamina narrowing on a degenerative basis. C7-T1: No disc herniation. No cord compression. No neuroforamina stenosis. No prevertebral compartment hematoma, mass or fluid collection. Flow void signal within the main vessels is normal. Codominant vertebral arteries. MR/MR cervical spine wo con IMPRESSION: Myelomalacia/myelopathy at C4-5 and right hemicord C3-4 level on a spondylosis etiology. Status post left hemilaminectomy and decompression, C4-5. 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 Grade 1 retrolisthesis C3-4. Instability cannot be excluded. Electronically signed by: Douglas Narvaez MD 12/30/2023 12:47 PM [facility]
== END 2023-12-30 09:42 | disposition home or self-care (01) ==
LOC: HO.MRI 09:41
PROVIDERS: PCP Internal Medicine; Visit Provider Physician Assistant
DX: G95.9 Disease of spinal cord, unspecified (principal)
CPT/HCPCS: 72050; 72141

== ENCOUNTER → 2023-12-30 10:28 | Outpatient (BNV) | payer MEDICAID, SELFPAY | PROVIDERS: PCP Internal Medicine; Visit Provider Radiology Diagnostic Radiology | DX: G95.9 Disease of spinal cord, unspecified (principal) | CPT/HCPCS: 72141 ==

== ENCOUNTER 2024-02-02 11:46 | Outpatient (AMB) | payer MEDICAID, SELFPAY ==
[2024-02-02 11:56] VITALS: BP 183/91; PULSE 86; O2SAT 98; BMI 24.8
--- NOTE | 2024-02-02 11:56 | MHC.OFFVIS ---
Vital Signs 02/02/24 11:56 Height 5 ft 10 in Weight 173 lb BMI 24.8 BP 183/91 H Position Sitting Pulse 86 Pulse Source Pulse Oximeter Pulse Oximetry (%) 98 Oxygen Delivery Method Room Air Intake Visit Reasons: Other low back pain Allergies morphine Allergy (Verified 02/02/24 11:57) Rash Medication List - Last Reconciled 02/02/24 by Shantelle Hicks, [employer] atorvastatin 10 mg PO DAILY cholecalciferol (vitamin D3) 50 mcg PO DAILY clonazepam 1 mg PO TID PRN oxycodone 5 mg PO TID PRN quetiapine 100 mg PO BEDTIME HPI Comments Details: Price is back in my office after the consult with neurosurgery. Mr. 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 Attention was attracted today that the patient might have positive sacroiliitis symptoms. He reports pain increase with flexing forward and not backwards as well as pain increase with prolonged sitting, he also reports increased pain with activities. He was examined physically and results are as below. We decided that I will schedule him for the diagnostic bilateral sacroiliac joint injection. After that we will take a look on whether sacroiliitis is pain generators for this patient. He denies that the numbness in bilateral lower extremities more on the right and less on the left is related to the pain in the back. Prior: with complains on pain in the axial lower lumbar spine with associated numbness in the right lower extremity. He reports that the problem started years ago. He reports that walking aggravates his pain the most. Flexing forward and flexing backwards hurts him however flexing backwards aggravates his pain more than flexing forward. He can not sleep normally because of his pain but he can not do activities of daily living he can not take care of himself he can not function normally. He is on permanent disability. His last full day of work was 15 years ago. He is on disability because of the neck surgery. However he denies knee pain in the cervical spine. He reports that his pain is worse at night and less severe in the afternoon. In terms of tissue damage he reports that his pain is throbbing in nature. He is taking oxycodone clonazepam and trazodone for his condition. [facility] Medical History (Updated 11/28/23 @ 10:55 by DANNY Mcclendon) Chronic pain syndrome Review of Systems Const All systems reviewed & are unremarkable except as noted in HPI and below ENT Reports Normal hearing present Neuro Reports Normal hearing present, Denies Abnormal speech present, Denies confusion and Denies Sensory deficit (Neuro) Psych Denies confusion Physical Exam Vital Signs: Last Vital Signs Pulse 86 02/02/24 11:56 BP 183/91 H 02/02/24 11:56 Pulse Ox 98 02/02/24 11:56 Oxygen Delivery Method Room Air 02/02/24 11:56 BMI result Body Mass Index 24.8 Const General: no acute distress; No confusion Orientation/consciousness: patient oriented x3 and No confusion Eyes General: appearance normal, both eyes and all related structures Pupils: Equal, round and reactive pupils present EOM: EOMs intact bilaterally Neck Neck: Yes full ROM Chest Chest palpation & inspection: normal inspection of the chest Resp Effort & Inspection: normal respiratory effort, able to speak in complete sentences, normal respiratory pattern, no audible wheezes and no cough Cardio Jugular venous distension: no JVD GI Inspection: Yes normal to inspection Back/Spine/Pelvis Other: Able to stand with difficulty on bilateral tiptoes. T flexing forward aggravate the patient's pain. Virgilio test is positive on the right. Performance of Virgilio test on the left causes aggravation of the pain on the right. Gaenslen test is positive bilaterally. Pelvic compression test is positive bilaterally. Thigh thrust test is positive bilaterally. Neuro General: patient oriented x3, gait normal and No confusion Cranial nerves: Yes Equal, round and reactive pupils present and Yes Normal hearing present Speech: No Abnormal speech present Gait exam (Neuro): Normal gait present Motor exam (neuro): 5/5 motor strength present throughout Sensory Exam: No Sensory deficit (Neuro) Extrem General: No pedal edema Psych Speech and movement: Normal speech and movement present Affect: normal affect Attitude: cooperative Thought process: Normal thought process present Thought content: Normal thought content present Insight: Good insight present (Psych) Judgement: Good judgement present (Psych) Results Reviewed Results Reviewed: MR LUMBAR SPINE WITHOUT CONTRAST CLINICAL INFORMATION: Low back pain COMPARISON: None available. TECHNIQUE: MRI of the lumbar spine was obtained using routine sequences without contrast. FINDINGS: Please note that evaluation is limited as axial T2 sequence was was obtained from L3 through S1. There are 5 nonrib-bearing lumbar-type vertebrae. Slight straightening of the normal lumbar lordosis. Mild retrolisthesis at L4-L5. No acute bone marrow abnormality. The vertebral body heights are preserved. Disc desiccation at L4-L5 and L5-S1 without significant disc height loss. Multilevel endplate osteophytosis. The visualized spinal cord is normal in caliber. No abnormal cord signal. The conus medullaris terminates at L1-L2. T12-L1: No significant spinal canal or neural foraminal narrowing. L1-L2: No significant spinal canal or neural foraminal narrowing. L3-L4: No significant spinal canal stenosis. Minimal left greater than right neural foraminal narrowing with the disc abutting the exiting L3 nerve roots bilaterally. L4-L5: Central disc extrusion migrating caudally along L5. There is superimposed annular fissure. Bilateral facet arthrosis. Moderate spinal canal stenosis. Mild to moderate bilateral neural foraminal narrowing with the disc abutting the exiting L4 nerve roots. L5-S1: Diffuse disc bulge and bilateral facet arthrosis. Prominent epidural fat. There is resultant near complete effacement of the thecal sac. Mild to moderate left greater than right neural foraminal narrowing with the disc abutting the exiting L5 nerve roots bilaterally. The paravertebral soft tissues are unremarkable. MR/MR lumbar spine wo con IMPRESSION: Within the limitations of this study, -At L4-L5, there is a central disc extrusion with superimposed annular fissure causing moderate spinal canal stenosis and mild to moderate bilateral neural foraminal narrowing. -At L5-S1: Disc bulge and epidural lipomatosis resulting in near complete effacement of the thecal sac. There is mild to moderate moderate bilateral neural foraminal narrowing with the disc abutting the exiting L5 nerve roots. 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 On physical exam attention was attracted to bilateral sacroiliitis as it is described above. I will schedule this patient for bilateral sacroiliac joint injection. The results of the diagnostic bilateral sacroiliac joint injection possibly will bring us the solution to this patient's pain. Coding Level of Care Code Est Pt Level 3 (96685) Diagnoses Cervical myelopathy G95.9 Intractable low back pain M54.59 Radiculopathy, lumbar region M54.16 Chronic pain syndrome G89.4 Spondylosis of lumbar region without myelopathy or radiculopathy M47.816
== END 2024-02-02 12:32 | disposition home or self-care (01) ==
PROVIDERS: PCP Internal Medicine; Visit Provider Anesthesiology
DX: G95.9 Disease of spinal cord, unspecified (principal); M54.59 Other low back pain; M54.16 Radiculopathy, lumbar region; G89.4 Chronic pain syndrome; M47.816 Spondylosis without myelopathy or radiculopathy, lumbar region
CPT/HCPCS: 99213

== ENCOUNTER → 2024-02-02 11:46 | Outpatient (BNVA) | payer MEDICAID, SELFPAY | PROVIDERS: PCP Internal Medicine; Visit Provider Anesthesiology | DX: M54.59 Other low back pain (principal); M47.816 Spondylosis without myelopathy or radiculopathy, lumbar region; M54.16 Radiculopathy, lumbar region; G95.9 Disease of spinal cord, unspecified; G89.4 Chronic pain syndrome | CPT/HCPCS: 99212 ==